=== PATIENT | female | born 1960 | race Caucasian/White ===

== ENCOUNTER 2021-03-09 23:00 | Emergency (ER) | payer SELFPAY ==
[~2021-03-09] VITALS: Ht 175.3 cm; Wt 70.3 kg
--- NOTE | 2021-03-10 00:55 | NUR ---
Pt brought back to room ED5A by phone triage specialist Adrian via wc. Pt placed on gurney in pos of comfort, semifowlers. Pt has good color, temp and appearance. Pt states she hurt her knee by slightly hyperextending it while she had a misstep off an escalator. Pt states that she had shattered the same knee many years ago and that it might be an exaserbation of that old injury. VSS, PE WNL, strong and reg pulses x4ext. Pt otherwise completely healthy with no other medical issues. awaiting EDMD eval.
[2021-03-10] MEDS ORDERED: OXYCODONE/APAP 5-325 MG TABLET PO ONE (01:15)
--- NOTE | 2021-03-10 01:20 | NUR ---
XR of rt knee taken and pending results.
[2021-03-10 01:38] LABS: MEAN CORPUSCULAR VOLUME 77.3 fL (75.5-95.3); PLATELET COUNT (AUTO) 323 K/uL (179-408)
[2021-03-10 01:45] LABS: CREATININE 0.9 mg/dL (0.6-1.3); POTASSIUM 3.8 mmol/L (3.5-5.1)
[2021-03-10] MEDS ORDERED: OXYCODONE/APAP 5-325 MG TABLET ONE (01:51)
[2021-03-10 02:16] LABS: MAGNESIUM 1.7 mg/dL (1.8-2.4)
[2021-03-10] MEDS ORDERED: MECO10006 IM (02:52)
[2021-03-10] MEDS ORDERED: OXYC-128 PO (02:52)
[2021-03-10] MEDS ORDERED: CYANOCOBALAMIN 1000 MCG/ML VIAL IM ONE (03:00)
--- NOTE | 2021-03-10 03:55 | NUR ---
1ml vit B12 shot given IM in Lt deltoid. Pt tolerated well, no s/sx of reaction.
--- NOTE | 2021-03-10 04:00 | NUR ---
Pt given DC instructions and medication infor, pt confirmed understanding of aftercare. Pt has good color, temp and appearance, VSS, PE WNL, RRR, Strong and reg pulses x 4ext. Strong and equal rn practitioner strength bilat. Pt wheeled out to ambulance bay and assisted into car by me personally without difficulty.
[2021-03-10] MEDS ORDERED: CYANOCOBALAMIN 1000 MCG/ML VIAL ONE (04:02)
[2021-03-10 04:58] VITALS: BP 123/72
== END 2021-03-10 04:00 | disposition home or self-care (01) ==
LOC: ER 23:03
DX: S80.01XA Contusion of right knee, initial encounter (principal); W10.0XXA Fall (on)(from) escalator, initial encounter; Y92.89 Other specified places as the place of occurrence of the external cause; Z86.718 Personal history of other venous thrombosis and embolism; Z79.01 Long term (current) use of anticoagulants; Z85.3 Personal history of malignant neoplasm of breast; E53.8 Deficiency of other specified B group vitamins; E83.42 Hypomagnesemia; M85.80 Other specified disorders of bone density and structure, unspecified site; F17.210 Nicotine dependence, cigarettes, uncomplicated
CPT/HCPCS: 36415; 73560; 80048; 82607; 83036; 83735; 85025; 96372; 99284; J3420; A4663